=== PATIENT | male | born 1995 | race Hispanic/Latino ===

== ENCOUNTER 2021-02-26 01:09 | Inpatient (IN) | payer BC, SELFPAY ==
[2021-02-26] MEDS ORDERED: Lorazepam 2 MG/ML VIAL ONE ×3 (01:35→17:55)
[2021-02-26 02:17] LABS: #Basophils 0.1 thou/uL (0.0-0.2); #Lymphocytes 1.2 thou/uL (1.20-3.40); #Monocytes 0.9 thou/uL (0.11-0.59); #Neutrophils 12.8 thou/uL (1.40-6.50); %Basophils 0.5 % (0.0-1.0); %Lymphocytes 7.7 % (21.0-51.0); %Neutrophils 85.7 % (42.0-75.0); Hemoglobin 13.6 g/dL (14.0-18.0); Mean Corpuscular HGB CONC 36.2 g/dL (32.0-36.0); Mean Corpuscular Hemoglobin 32.8 pg (27.0-31.0); Mean Corpuscular Volume 90.6 fL (78.0-98.0); Mean Platelet Volume 9.2 fL (7.4-10.4); Platelet Count 214 thou/uL (130-400); RBC Distribution Width 11.8 % (11.5-14.5); Red Blood Cell (RBC) Count 4.13 mill/uL (4.70-6.10); White Blood Cell (WBC) Count 14.9 thou/uL (4.8-10.8)
[2021-02-26 02:40] LABS: ALT (SGPT) 186 U/L (8-55); AST (SGOT) 1043 U/L (5-34); Alkaline Phosphatase 61 U/L (40-110); Anion Gap 20 mmol/L (10-20); BUN (Urea Nitrogen) 35 mg/dL (8.9-20.6); Bilirubin, Total 1.7 mg/dL (0.2-1.2); Calc. Creatinine Clearance 0 mL/min (70-130); Calcium 9.4 mg/dL (7.8-10.44); Carbon Dioxide 23 mmol/L (22-29); Chloride 99 mmol/L (98-107); Globulin 2.8 g/dL (2.4-3.5); Glucose 112 mg/dL (70-105); Potassium 3.9 mmol/L (3.5-5.1); Protein, Total 7.8 g/dL (6.0-8.3); Sodium 138 mmol/L (136-145)
[2021-02-26 05:18] LABS: Amphetamine Detected (NotDetected); Barbiturates Screen Not Detected (NotDetected); Benzodiazepine Screen Not Detected (NotDetected); Cocaine Metabolite Screen Not Detected (NotDetected); Medtox Control Line Valid? VALID (VALID); Medtox Reader # READER 4; Methadone Not Detected (NotDetected); Methamphetamine Detected (NotDetected); Opiate Screen Not Detected (NotDetected); Oxycodone Screen Not Detected (NotDetected); Phencyclidine (PCP) Not Detected (NotDetected); THC/Cannabinoid Screen Not Detected (NotDetected); Tricyclic Screen Not Detected (NotDetected)
[2021-02-26 06:31] LABS: SARS-CoV-2 NAA Rapid Test Not Detected (NotDetected)
[2021-02-26 06:47] LABS: Acetaminophen Less than 6.0 mcg/mL (10.0-30.0); Alcohol Less than 10 mg/dL (Less than 10); Salicylate Less than 8.0 mg/dL (15.0-30.0)
[2021-02-26] MEDS ORDERED: Acetaminophen 325 MG TAB PO PRN (08:34)
[2021-02-26 12:01] VITALS: BMI 31.4
[2021-02-26] MEDS: Sodium Chloride 0.9% 1,000 ML IV SCH ×2 (12:31→21:14)
[2021-02-27] MEDS: Lorazepam 2 MG/ML VIAL SLOW IVP PRN ×2 (00:43→06:03)
[2021-02-27] MEDS: Sodium Chloride 0.9% 1,000 ML IV SCH ×3 (01:28→14:00)
[2021-02-27 05:56] LABS: #Basophils 0.1 thou/uL (0.0-0.2); #Eosinphils 0.1 thou/uL (0.0-0.7); #Lymphocytes 2.3 thou/uL (1.20-3.40); #Monocytes 0.9 thou/uL (0.11-0.59); #Neutrophils 10.3 thou/uL (1.40-6.50); %Basophils 0.6 % (0.0-1.0); %Eosinophils 0.6 % (0.0-10.0); %Lymphocytes 17.1 % (21.0-51.0); %Monocytes 6.6 % (0.0-10.0); %Neutrophils 75.1 % (42.0-75.0); Hemoglobin 12.1 g/dL (14.0-18.0); Mean Corpuscular Hemoglobin 31.7 pg (27.0-31.0); Mean Corpuscular Volume 93.4 fL (78.0-98.0); Mean Platelet Volume 8.7 fL (7.4-10.4); Platelet Count 177 thou/uL (130-400); RBC Distribution Width 11.8 % (11.5-14.5); Red Blood Cell (RBC) Count 3.82 mill/uL (4.70-6.10); White Blood Cell (WBC) Count 13.7 thou/uL (4.8-10.8)
[2021-02-27 06:24] LABS: ALT (SGPT) 626 U/L (8-55); AST (SGOT) 2652 U/L (5-34); Albumin 4.1 g/dL (3.5-5.0); Alkaline Phosphatase 62 U/L (40-110); Anion Gap 12 mmol/L (10-20); BUN (Urea Nitrogen) 19 mg/dL (8.9-20.6); Bilirubin, Total 2.2 mg/dL (0.2-1.2); Calc. Creatinine Clearance 136 mL/min (70-130); Calcium 8.9 mg/dL (7.8-10.44); Carbon Dioxide 28 mmol/L (22-29); Chloride 102 mmol/L (98-107); Globulin 2.2 g/dL (2.4-3.5); Glucose 114 mg/dL (70-105); Potassium 4.1 mmol/L (3.5-5.1); Protein, Total 6.3 g/dL (6.0-8.3); Sodium 138 mmol/L (136-145)
[2021-02-27 14:50] LABS: HBCM Index 0.11 S/CO (0-0.79); HBSAg Index 0.24 S/CO (0-0.99); Hep A IgM AB Non-Reactive (NonReactive); Hep A IgM S/CO 0.14 S/CO (0-0.79); Hep B Surf Ag Non-Reactive S/CO (NonReactive); Hep C IgG Ab Non-Reactive (NonReactive); Hep C Index 0.06 S/CO (0-0.79); Hepatitis B Core IgM Abs Non-Reactive (NonReactive)
[2021-02-27] MEDS ORDERED: Thiamine 100 MG TAB PO SCH (16:00)
[2021-02-27] MEDS ORDERED: Folic Acid 1 MG TAB PO SCH (16:00)
[2021-02-27] MEDS ORDERED: Multivitamin W/ Minerals 1 TAB PO SCH (16:00)
[2021-02-27 16:50] LABS: HIV (1/2) Antibody/Antigen Non-Reactive (NonReactive); HIV 1/2 INDEX 0.14 S/CO (<1.00)
[2021-02-27] MEDS ORDERED: Lorazepam 2 MG/ML VIAL SLOW IVP SCH ×2 (20:15→21:45)
[2021-02-27] MEDS ORDERED: Haloperidol Lactate 5 MG/ML VIAL IM PRN (22:22)
[2021-02-27] MEDS ORDERED: Ziprasidone 20 MG VIAL IM PRN ×2 (22:28→23:26)
[2021-02-27] MEDS ORDERED: Sterile Water 10 ML ONE ×3 (22:30→22:32)
[2021-02-27] MEDS: Ziprasidone 20 MG VIAL ONE ×2 (22:42→23:21)
[2021-02-27] MEDS ORDERED: Sterile Water 10 ML VIAL FS PRN (22:45)
[2021-02-27] MEDS ORDERED: diphenhydrAMINE 50 MG/ML VIAL IM SCH (22:45)
[2021-02-27] MEDS ORDERED: diphenhydrAMINE 50 MG/ML VIAL IM PRN (23:12)
[2021-02-28] MEDS: Sodium Chloride 0.9% 1,000 ML IV SCH ×4 (02:28→21:19)
[2021-02-28] MEDS ORDERED: Lorazepam 2 MG/ML VIAL ONE (06:41)
[2021-02-28] MEDS: Multivitamin W/ Minerals 1 TAB PO SCH (08:18)
[2021-02-28] MEDS: Folic Acid 1 MG TAB PO SCH (08:19)
[2021-02-28] MEDS: Thiamine 100 MG TAB PO SCH (08:19)
[2021-02-28 08:30] LABS: Anion Gap 16 mmol/L (10-20); BUN (Urea Nitrogen) 13 mg/dL (8.9-20.6); Calc. Creatinine Clearance 144 mL/min (70-130); Calcium 9.9 mg/dL (7.8-10.44); Carbon Dioxide 30 mmol/L (22-29); Chloride 108 mmol/L (98-107); Glucose 70 mg/dL (70-105); Potassium 5.8 mmol/L (3.5-5.1); Sodium 148 mmol/L (136-145)
[2021-02-28 08:31] LABS: ALT (SGPT) 539 U/L (8-55); AST (SGOT) 1409 U/L (5-34); Albumin 3.8 g/dL (3.5-5.0); Alkaline Phosphatase 63 U/L (40-110); Anion Gap 16 mmol/L (10-20); BUN (Urea Nitrogen) 13 mg/dL (8.9-20.6); Bilirubin, Total 0.9 mg/dL (0.2-1.2); Calc. Creatinine Clearance 137 mL/min (70-130); Calcium 9.8 mg/dL (7.8-10.44); Carbon Dioxide 29 mmol/L (22-29); Chloride 108 mmol/L (98-107); Globulin 2.5 g/dL (2.4-3.5); Glucose 69 mg/dL (70-105); Potassium 5.7 mmol/L (3.5-5.1); Protein, Total 6.3 g/dL (6.0-8.3); Sodium 147 mmol/L (136-145)
[2021-02-28 08:35] LABS: #Basophils 0.1 thou/uL (0.0-0.2); #Eosinphils 0.3 thou/uL (0.0-0.7); #Lymphocytes 4.5 thou/uL (1.20-3.40); #Neutrophils 5.8 thou/uL (1.40-6.50); %Basophils 0.7 % (0.0-1.0); %Eosinophils 2.8 % (0.0-10.0); %Lymphocytes 38.8 % (21.0-51.0); %Monocytes 8.2 % (0.0-10.0); %Neutrophils 49.5 % (42.0-75.0); Hemoglobin 12.7 g/dL (14.0-18.0); Mean Corpuscular HGB CONC 32.2 g/dL (32.0-36.0); Mean Corpuscular Hemoglobin 31.1 pg (27.0-31.0); Mean Corpuscular Volume 96.6 fL (78.0-98.0); Mean Platelet Volume 9.3 fL (7.4-10.4); Platelet Count 211 thou/uL (130-400); RBC Distribution Width 12.1 % (11.5-14.5); Red Blood Cell (RBC) Count 4.08 mill/uL (4.70-6.10); White Blood Cell (WBC) Count 11.7 thou/uL (4.8-10.8)
[2021-02-28 08:42] LABS: Prothrombin Time 13.7 sec (12.0-14.7)
[2021-02-28] MEDS ORDERED: Ziprasidone 20 MG VIAL IM SCH (09:00)
[2021-02-28] MEDS: ALPRAZolam 1 MG TAB PO SCH ×3 (09:35→21:19)
[2021-02-28] MEDS: Lorazepam 2 MG/ML VIAL SLOW IVP PRN ×2 (10:08→17:33)
[2021-02-28] MEDS: Nicotine 14 MG PATCH TD SCH (17:29)
[2021-03-01] MEDS: Lorazepam 2 MG/ML VIAL SLOW IVP PRN (01:15)
[2021-03-01] MEDS: Sodium Chloride 0.9% 1,000 ML IV SCH ×3 (04:29→16:17)
[2021-03-01 06:55] LABS: Anion Gap 9 mmol/L (10-20); BUN (Urea Nitrogen) 11 mg/dL (8.9-20.6); Calc. Creatinine Clearance 187 mL/min (70-130); Calcium 9.1 mg/dL (7.8-10.44); Carbon Dioxide 29 mmol/L (22-29); Chloride 104 mmol/L (98-107); Glucose 102 mg/dL (70-105); Potassium 4.1 mmol/L (3.5-5.1); Sodium 138 mmol/L (136-145)
[2021-03-01 08:24] LABS: ALT (SGPT) 397 U/L (8-55); AST (SGOT) 750 U/L (5-34); Albumin 3.5 g/dL (3.5-5.0); Alkaline Phosphatase 58 U/L (40-110); Bilirubin, Direct 0.2 mg/dL (0.1-0.3); Bilirubin, Total 0.5 mg/dL (0.2-1.2); Protein, Total 5.7 g/dL (6.0-8.3)
[2021-03-01] MEDS: Thiamine 100 MG TAB PO SCH (09:04)
[2021-03-01] MEDS: ALPRAZolam 1 MG TAB PO SCH ×3 (09:04→20:59)
[2021-03-01] MEDS: Multivitamin W/ Minerals 1 TAB PO SCH (09:04)
[2021-03-01] MEDS: Folic Acid 1 MG TAB PO SCH (09:04)
[2021-03-01 11:15] VITALS: BP 133/60; TEMP 97.6
[2021-03-01] MEDS: Nicotine 14 MG PATCH TD SCH (16:47)
== END 2021-03-01 21:41 | disposition home or self-care (01) | DRG 917 ==
LOC: ERS 01:09 → ERHOLD 06:08 → T4-A 17:39
PROVIDERS: ADMIT Student in an Organized Health Care Education/Training Program; ATTEND Internal Medicine
DX: T43.621A Poisoning by amphetamines, accidental (unintentional), initial encounter (principal); G92 Toxic encephalopathy; N17.9 Acute kidney failure, unspecified; Z20.822 Contact with and (suspected) exposure to COVID-19; F15.10 Other stimulant abuse, uncomplicated; Z88.2 Allergy status to sulfonamides; R74.01 Elevation of levels of liver transaminase levels; R45.1 Restlessness and agitation; K71.8 Toxic liver disease with other disorders of liver; F29 Unspecified psychosis not due to a substance or known physiological condition; Z79.899 Other long term (current) drug therapy
CPT/HCPCS: 36415; 51701; 76705; 76770; 80048; 80053; 80074; 80076; 80306; 80307; 82390; 83690; 85025; 85610; 87389; 93005; 96374; J1200; J2060; J3486; U0002; U0005